=== PATIENT | female | born 1940 | race Hispanic/Latino ===

== ENCOUNTER → 2017-05-29 | Outpatient (CLI) | payer MEDICARE ==
[~2017-05-29] MED LIST: ASPI-1190 PO; CHOL200016 PO; CURCUMIN PO; HYDR5TAB2 PO; IOPAMIDOL-370 75 ML VIAL IV ONE; MAGN400C PO; METF500T6 PO; NAPR220C15 PO; OMEP20CA10 PO; PRAS50CA3 PO; PROG100C6 PO; THYR60TA2 PO; WHEA1POW2 PO; [UNRECOGNIZED DRUG - OTHER] PO
== END | disposition home or self-care (01) ==
LOC: RAH 08:06
PROVIDERS: ATTEND Family Medicine
DX: K57.92 Diverticulitis of intestine, part unspecified, without perforation or abscess without bleeding (principal)
CPT/HCPCS: 74176; Q9967

== ENCOUNTER 2018-06-29 07:08 | Inpatient (IN) | payer MEDICARE | END 2018-07-04 11:25 | disposition home or self-care (01) | LOC: DAHIP 07:08 → 3BH 15:44 | PROC: 0DTN4ZZ Resection of Sigmoid Colon, Percutaneous Endoscopic Approach (ICD-10-PCS; principal; 2018-06-29 09:42) | PROC: 0DJD8ZZ Inspection of Lower Intestinal Tract, Via Natural or Artificial Opening Endoscopic (ICD-10-PCS; 2018-06-29 09:42) | DX: K57.32 Diverticulitis of large intestine without perforation or abscess without bleeding (principal); K56.7 Ileus, unspecified ==

== ENCOUNTER → 2018-08-11 | Outpatient (CLI) | payer MEDICARE ==
[~2018-08-11] MED LIST changes: -ASPI-1190 PO; -CHOL200016 PO; +CHOL200059 PO; -CURCUMIN PO; +DIATR MEGLU/DIATRIZOATE SODIUM 30 ML BOTTLE ONE; -HYDR5TAB2 PO; -IOPAMIDOL-370 75 ML VIAL IV ONE; -MAGN400C PO; +MAGN400T6 PO; +METF-444 PO; -METF500T6 PO; -NAPR220C15 PO; -OMEP20CA10 PO; +PRAS25CA9 PO; -PRAS50CA3 PO; -PROG100C6 PO; -THYR60TA2 PO; +THYR90TA PO; +TYL3 PO; -WHEA1POW2 PO; -[UNRECOGNIZED DRUG - OTHER] PO
== END | disposition home or self-care (01) ==
LOC: RAH 08:01
PROVIDERS: ATTEND Student in an Organized Health Care Education/Training Program
DX: R10.2 Pelvic and perineal pain (principal); K57.30 Diverticulosis of large intestine without perforation or abscess without bleeding; Z90.49 Acquired absence of other specified parts of digestive tract
CPT/HCPCS: 72192; Q9963

== ENCOUNTER 2018-10-24 23:58 | Emergency (ER) | payer MEDICARE ==
[~2018-10-24 23:58] MED LIST changes: -DIATR MEGLU/DIATRIZOATE SODIUM 30 ML BOTTLE ONE
[2018-10-25 00:38] LABS: APPEARANCE,URINE Clear (CLEAR); BASOPHILS % (AUTO) 0.7 % (0.0-5.0); BILIRUBIN,URINE Negative (NEGATIVE); COLOR,URINE Yellow (YELLOW); EOSINOPHILS % (AUTO) 1.5 % (0.0-8.0); GLUCOSE, URINE (UA) Negative (NEGATIVE); HEMATOCRIT 37.4 % (36-48); KETONES,URINE Negative (NEGATIVE); LEUKOCYTE ESTERASE ,URINE Large (NEGATIVE); LYMPHOCYTES % (AUTO) 32.4 % (21.0-51.0); MEAN CORPUSCULAR HEMOGLOBIN 29.7 pg (27.0-33.0); MEAN CORPUSCULAR HGB CONC 33.9 g/dL (32.0-36.0); MEAN CORPUSCULAR VOLUME 87.7 fL (79-99); MONOCYTES % (AUTO) 9.4 % (3.0-13.0); NITRATE,URINE Negative (NEGATIVE); OCCULT BLOOD,URINE Negative (NEGATIVE); PLATELET COUNT (AUTO) 218 K/uL (130-400); PROTEIN,URINE Negative (NEGATIVE); RED BLOOD CELL COUNT(AUTO) 4.26 MIL/uL (4.00-5.50); RED CELL DISTRIBUTION WIDTH 13.7 % (11.0-15.5); UROBILINOGEN,URINE 0.2 mg/dL (0.2-1.0); WHITE BLOOD COUNT (AUTO) 6.3 K/uL (4.8-10.8)
[2018-10-25 00:46] LABS: CREATININE 1.3 mg/dL (0.5-1.5); POTASSIUM 3.9 mmol/L (3.5-5.1)
[2018-10-25 00:50] LABS: ALBUMIN 3.9 g/dL (3.5-5.0); BILIRUBIN,TOTAL 0.2 mg/dL (0.2-1.0); TOTAL PROTEIN, SERUM 7.2 g/dL (6.0-8.3)
[2018-10-25 01:10] LABS: BACTERIA,URINE Few /HPF (None Seen); MUCUS,URINE Moderate LPF (None Seen); RBC,URINE None Seen /HPF (0-1); SQUAMOUS EPITHELIAL CELL,UR Moderate /HPF (0-2)
[2018-10-25] MEDS ORDERED: MORPHINE SULFATE 4 MG/1ML SYG ONE (01:24)
[2018-10-25] MEDS ORDERED: SODIUM CHLORIDE 0.9% 1000ML 1,000 ML IV ONE (01:24)
[2018-10-25] MEDS ORDERED: ONDANSETRON HCL 4 MG/2 ML VIAL ONE (01:24)
[2018-10-25] MEDS ORDERED: CEFTRIAXONE SODIUM 1 GM ONE (01:58)
[2018-10-25] MEDS ORDERED: KETOROLAC TROMETHAMINE 30MG/ML ONE (02:02)
== END 2018-10-25 02:04 | disposition home or self-care (01) ==
LOC: EDH 23:58
DX: K43.9 Ventral hernia without obstruction or gangrene (principal); N39.0 Urinary tract infection, site not specified; Z88.2 Allergy status to sulfonamides
CPT/HCPCS: 36415; 74176; 80053; 81001; 83690; 85025; 96374; 96375; 99285; J0696; J1885; J2270; J2405; J7030

== ENCOUNTER 2019-04-06 10:25 | Day surgery (SDC) | payer MEDICARE ==
[2019-04-01 12:06] VITALS: BP 147/81
[2019-04-01 12:11] LABS: BASOPHILS % (AUTO) 0.9 % (0.0-5.0); EOSINOPHILS % (AUTO) 2.5 % (0.0-8.0); HEMATOCRIT 40.3 % (36-48); LYMPHOCYTES % (AUTO) 28.8 % (21.0-51.0); MEAN CORPUSCULAR HEMOGLOBIN 31.7 pg (27.0-33.0); MEAN CORPUSCULAR VOLUME 93.4 fL (79-99); MONOCYTES % (AUTO) 8.6 % (3.0-13.0); NEUTROPHILS % (AUTO) 59.2 % (40.0-77.0); PLATELET COUNT (AUTO) 225 K/uL (130-400); RED BLOOD CELL COUNT(AUTO) 4.32 MIL/uL (4.00-5.50); RED CELL DISTRIBUTION WIDTH 12.8 % (11.0-15.5); WHITE BLOOD COUNT (AUTO) 4.2 K/uL (4.8-10.8)
[2019-04-01 12:18] LABS: CREATININE 1.1 mg/dL (0.5-1.5); POTASSIUM 4.3 mmol/L (3.5-5.1)
[~2019-04-06] VITALS: Ht 167.6 cm; Wt 78.3 kg
[2019-04-06] VITALS (14 sets, daily range): BP systolic 117–168; BP diastolic 72–96
[~2019-04-06 10:25] MED LIST changes: +BUPIVACAINE/PF 0.25% 30ML VIAL IJ ONE; +CEFAZOLIN SODIUM 1 GM VIAL IVP SCH; +DEXAMETHASONE SOD PHOSPHATE 10MG/ML 1ML VIAL ONE; +EPHEDRINE SULFATE 50 MG/ML AMPULE ONE; +FENTANYL CITRATE PF 50 MCG/1 ML 2ML VIAL ONE; +GLYCOPYRROLATE 1 MG/5 ML SYRINGE ONE; +KETOROLAC TROMETHAMINE 30MG/ML ONE; +LACTATED RINGERS 1000ML 1,000 ML IV ONE; +LIDOCAINE PF 2% 5ML ABBOJECT ONE; -MAGN400T6 PO; +MAGN400T8 PO; +MEPERIDINE-PF 25 MG/ML SYG ONE; -METF-444 PO; +MIDAZOLAM HCL 1 MG/ML 2ML VIAL ONE; +MORPHINE SULFATE 2 MG/ML 1ML SYG ONE; +NEOSTIGMINE 5MG/5ML SYR IV ONE; +PHARMACY COMMUNICATION MISC SCH; +PROPOFOL 10 MG/ML 20ML VIAL IV ONE; +ROCURONIUM 10MG/1ML SYR 10 MG/ML ML ONE; +SUCCINYLCHOLINE 200MG/10ML SYR ONE; -TYL3 PO
[2019-04-06] MEDS ORDERED: ACETAMINOPHEN-CODEINE 300/30MG TAB ONE (11:03)
== END 2019-04-06 11:21 | disposition home or self-care (01) ==
LOC: DAH 10:25 → EDSTATUS 11:00 → DAH 11:21
PROVIDERS: ATTEND Surgery
DX: K43.2 Incisional hernia without obstruction or gangrene (principal); J45.909 Unspecified asthma, uncomplicated; K21.9 Gastro-esophageal reflux disease without esophagitis; G43.909 Migraine, unspecified, not intractable, without status migrainosus; Z88.2 Allergy status to sulfonamides; Z88.1 Allergy status to other antibiotic agents; Z90.710 Acquired absence of both cervix and uterus; Z98.890 Other specified postprocedural states; Z90.49 Acquired absence of other specified parts of digestive tract; Z79.899 Other long term (current) drug therapy; Z83.3 Family history of diabetes mellitus
CPT/HCPCS: 36415; 49560; 49568; 80048; 85025; 93005; A4215; A4221; A4222; A4223; A4450; A4452; A4600; A4606; A4663; J0330; J0690; J1100; J1885; J2001; J2175 ×2; J2250; J2704; J2710; J3010; J3490 ×3; J7120 ×2

== ENCOUNTER → 2020-06-23 | Outpatient (CLI) | payer MEDICARE ==
[~2020-06-23] MED LIST changes: -BUPIVACAINE/PF 0.25% 30ML VIAL IJ ONE; -CEFAZOLIN SODIUM 1 GM VIAL IVP SCH; -DEXAMETHASONE SOD PHOSPHATE 10MG/ML 1ML VIAL ONE; -EPHEDRINE SULFATE 50 MG/ML AMPULE ONE; -FENTANYL CITRATE PF 50 MCG/1 ML 2ML VIAL ONE; -GLYCOPYRROLATE 1 MG/5 ML SYRINGE ONE; -KETOROLAC TROMETHAMINE 30MG/ML ONE; -LACTATED RINGERS 1000ML 1,000 ML IV ONE; -LIDOCAINE PF 2% 5ML ABBOJECT ONE; -MEPERIDINE-PF 25 MG/ML SYG ONE; -MIDAZOLAM HCL 1 MG/ML 2ML VIAL ONE; -MORPHINE SULFATE 2 MG/ML 1ML SYG ONE; -NEOSTIGMINE 5MG/5ML SYR IV ONE; -PHARMACY COMMUNICATION MISC SCH; -PROPOFOL 10 MG/ML 20ML VIAL IV ONE; -ROCURONIUM 10MG/1ML SYR 10 MG/ML ML ONE; -SUCCINYLCHOLINE 200MG/10ML SYR ONE
== END | disposition home or self-care (01) ==
LOC: RAH 09:32
PROVIDERS: ATTEND Family Medicine
DX: M50.223 Other cervical disc displacement at C6-C7 level (principal); M50.222 Other cervical disc displacement at C5-C6 level; M50.221 Other cervical disc displacement at C4-C5 level
CPT/HCPCS: 72141

== ENCOUNTER → 2020-11-15 | Outpatient (CLI) | payer MEDICARE ==
[2020-11-15 10:03] LABS: BASOPHILS % (AUTO) 0.4 % (0.0-5.0); EOSINOPHILS % (AUTO) 0.7 % (0.0-8.0); HEMATOCRIT 37.1 % (36-48); LYMPHOCYTES % (AUTO) 29.2 % (21.0-51.0); MEAN CORPUSCULAR HGB CONC 32.1 g/dL (32.0-36.0); MEAN CORPUSCULAR VOLUME 96.6 fL (79-99); MONOCYTES % (AUTO) 9.1 % (3.0-13.0); NEUTROPHILS % (AUTO) 60.2 % (40.0-77.0); PLATELET COUNT (AUTO) 219 K/uL (130-400); RED BLOOD CELL COUNT(AUTO) 3.84 MIL/uL (4.00-5.50); RED CELL DISTRIBUTION WIDTH 13.7 % (11.0-15.5); WHITE BLOOD COUNT (AUTO) 4.5 K/uL (4.8-10.8)
[2020-11-15 10:25] LABS: ALBUMIN 3.7 g/dL (3.5-5.0); BILIRUBIN,TOTAL 0.4 mg/dL (0.2-1.0); CREATININE 1.1 mg/dL (0.5-1.5); POTASSIUM 4.4 mmol/L (3.5-5.1)
== END | disposition home or self-care (01) ==
LOC: RAH 08:52
PROVIDERS: ATTEND Internal Medicine Gastroenterology
DX: K43.9 Ventral hernia without obstruction or gangrene (principal); K57.90 Diverticulosis of intestine, part unspecified, without perforation or abscess without bleeding
CPT/HCPCS: 36415; 76700; 80053; 82150; 83690; 85025

== ENCOUNTER → 2021-01-05 | Outpatient (CLI) | payer MEDICARE | END | disposition home or self-care (01) | LOC: RAH 11:20 | PROVIDERS: ATTEND Family Medicine | DX: M41.84 Other forms of scoliosis, thoracic region (principal) | CPT/HCPCS: 72070 ==

== ENCOUNTER → 2021-08-07 | Outpatient (CLI) | payer MEDICARE ==
[~2021-08-07] MED LIST changes: +IOHEXOL-350 75 ML VIAL IV ONE; +MAGN400T56 PO; -MAGN400T8 PO
== END | disposition home or self-care (01) ==
LOC: RAH 08:00
PROVIDERS: ATTEND Family Medicine
DX: K57.30 Diverticulosis of large intestine without perforation or abscess without bleeding (principal)
CPT/HCPCS: 74178; Q9967

== ENCOUNTER → 2021-08-28 | Outpatient (CLI) | payer MEDICARE ==
[~2021-08-28] MED LIST changes: -IOHEXOL-350 75 ML VIAL IV ONE
== END | disposition home or self-care (01) ==
LOC: SHCH 15:06
PROVIDERS: ATTEND Internal Medicine Cardiovascular Disease
DX: I51.89 Other ill-defined heart diseases (principal); R06.00 Dyspnea, unspecified
CPT/HCPCS: 93306

== ENCOUNTER → 2021-08-30 | Outpatient (CLI) | payer OTHER | END | disposition home or self-care (01) | LOC: OIH 08:20 | PROVIDERS: ATTEND Internal Medicine Cardiovascular Disease | DX: Z13.6 Encounter for screening for cardiovascular disorders (principal); R93.1 Abnormal findings on diagnostic imaging of heart and coronary circulation | CPT/HCPCS: 75571 ==

== ENCOUNTER → 2022-08-07 | Outpatient (CLI) | payer MEDICARE, BC | END | disposition home or self-care (01) | LOC: RAH 12:31 | PROVIDERS: ATTEND Family Medicine | DX: I34.0 Nonrheumatic mitral (valve) insufficiency (principal); I34.1 Nonrheumatic mitral (valve) prolapse; I34.81 Nonrheumatic mitral (valve) annulus calcification | CPT/HCPCS: 93306 ==

== ENCOUNTER → 2022-11-06 | Outpatient (CLI) | payer MEDICARE, BC | END | disposition home or self-care (01) | LOC: RAH 12:42 | PROVIDERS: ATTEND Family Medicine | DX: R05.1 Acute cough (principal); M47.814 Spondylosis without myelopathy or radiculopathy, thoracic region | CPT/HCPCS: 71046 ==

== ENCOUNTER → 2023-06-30 | Outpatient (CLI) | payer MEDICARE ==
[~2023-06-30] MED LIST changes: +ALBU1.252 IH; +AMIT50TA3 PO; +DOCU100C33 PO; +GABA100C PO; +LIDO700A30 TP; +LORA10TA7 PO; +METO25 PO; -PRAS25CA9 PO; +SUMA50TA17 PO; +THYR60TA2 PO; -THYR90TA PO
[2023-06-30 16:57] LABS: ALBUMIN 3.6 g/dL (3.5-5.0); BILIRUBIN,TOTAL 0.3 mg/dL (0.2-1.0); CREATININE 1.4 mg/dL (0.5-1.5); POTASSIUM 4.3 mmol/L (3.5-5.1); TOTAL PROTEIN, SERUM 6.7 g/dL (6.0-8.3)
== END | disposition home or self-care (01) ==
LOC: LAB 16:03
PROVIDERS: ATTEND Internal Medicine Cardiovascular Disease
DX: I34.0 Nonrheumatic mitral (valve) insufficiency (principal); R06.00 Dyspnea, unspecified
CPT/HCPCS: 36415; 80053; 83735; 83880

== ENCOUNTER → 2023-08-25 | Outpatient (CLI) | payer MEDICARE | END | disposition home or self-care (01) | LOC: RAH 16:40 | PROVIDERS: ATTEND Family Medicine | DX: M19.031 Primary osteoarthritis, right wrist (principal); M25.531 Pain in right wrist | CPT/HCPCS: 73100 ==

== ENCOUNTER → 2023-09-04 | Outpatient (CLI) | payer MEDICARE | END | disposition home or self-care (01) | LOC: RAH 12:22 | PROVIDERS: ATTEND Family Medicine | DX: G31.9 Degenerative disease of nervous system, unspecified (principal); R51.9 Headache, unspecified; Z91.81 History of falling | CPT/HCPCS: 70450 ==

== ENCOUNTER → 2023-12-01 | Outpatient (CLI) | payer MEDICARE | END | disposition home or self-care (01) | LOC: RAH 07:26 | PROVIDERS: ATTEND Internal Medicine | DX: K43.9 Ventral hernia without obstruction or gangrene (principal); R10.13 Epigastric pain | CPT/HCPCS: 76700 ==

== ENCOUNTER 2024-02-13 15:53 | Emergency (ER) | payer MEDICARE ==
[~2024-02-13] VITALS: Ht 167.6 cm; Wt 73.9 kg
[2024-02-13 15:57] VITALS: BP 196/78; PULSE 64; RESP 16; TEMP 98.4
[2024-02-13] MEDS: acetaMINOPHEN WITH coDEINE 1 TAB TAB PO ONE (17:10)
[2024-02-13 17:22] LABS: BASOPHILS # (AUTO) 0.02 K/uL (0.00-0.20); BASOPHILS % (AUTO) 0.4 % (0.0-5.0); EOSINOPHILS # (AUTO) 0.16 K/uL (0.00-0.70); EOSINOPHILS % (AUTO) 3.2 % (0.0-8.0); HEMATOCRIT 39.9 % (36-48); IMMATURE GRANULOCYTE ABSOLUTE 0.01 K/uL (0-1); LYMPHOCYTES # (AUTO) 1.2 K/uL (1.0-4.8); LYMPHOCYTES % (AUTO) 23.7 % (21.0-51.0); MEAN CORPUSCULAR HEMOGLOBIN 30.1 pg (27.0-33.0); MEAN CORPUSCULAR HGB CONC 32.3 g/dL (32.0-36.0); MONOCYTES # (AUTO) 0.4 K/uL (0.1-1.0); MONOCYTES % (AUTO) 7.8 % (3.0-13.0); NEUTROPHILS # (AUTO) 3.2 K/uL (1.8-7.7); NEUTROPHILS % (AUTO) 64.7 % (40.0-77.0); PLATELET COUNT (AUTO) 205 K/uL (130-400); RED BLOOD CELL COUNT(AUTO) 4.29 MIL/uL (4.00-5.50); RED CELL DISTRIBUTION WIDTH 13.6 % (11.0-15.5)
[2024-02-13 17:38] LABS: CREATININE 1.1 mg/dL (0.5-1.0); POTASSIUM 4.7 mmol/L (3.5-5.1)
[2024-02-13 17:40] LABS: APPEARANCE,URINE CLEAR (CLEAR); BILIRUBIN,URINE NEGATIVE (NEGATIVE); COLOR,URINE LIGHT-YELLOW (YELLOW); GLUCOSE, URINE (UA) NEGATIVE (NEGATIVE); KETONES,URINE NEGATIVE (NEGATIVE); LEUKOCYTE ESTERASE ,URINE 25 Leu/uL (NEGATIVE); NITRATE,URINE NEGATIVE (NEGATIVE); OCCULT BLOOD,URINE NEGATIVE (NEGATIVE); PH,URINE 5.5 (5.0-8.0); PROTEIN,URINE NEGATIVE (NEGATIVE); UROBILINOGEN,URINE 0.2 mg/dL (0.2-1.0)
[2024-02-13 17:45] LABS: ADD UA MICROSCOPIC YES
[2024-02-13 17:47] LABS: MUCUS,URINE RARE LPF (None Seen); RBC,URINE 0-1 /HPF (0-1); SQUAMOUS EPITHELIAL CELL,UR RARE /HPF (0-2)
[2024-02-13] MEDS ORDERED: IOHEXOL-350 75 ML VIAL IV ONE (17:58)
[2024-02-13] MEDS ORDERED: ACET-2079 PO (19:54)
== END 2024-02-13 20:17 | disposition home or self-care (01) ==
LOC: EDH 15:53
DX: G43.909 Migraine, unspecified, not intractable, without status migrainosus (principal); R10.32 Left lower quadrant pain; G57.92 Unspecified mononeuropathy of left lower limb; R10.2 Pelvic and perineal pain; M25.552 Pain in left hip; Z88.2 Allergy status to sulfonamides; Z88.1 Allergy status to other antibiotic agents; Z79.899 Other long term (current) drug therapy; Z98.890 Other specified postprocedural states
CPT/HCPCS: 99285; 74177; 80048; 85025; 81001; 36415; Q9967

== ENCOUNTER → 2024-09-15 | Outpatient (CLI) | payer MEDICARE ==
[~2024-09-15] MED LIST changes: +ACET-2079 PO
--- NOTE | 2024-09-15 12:41 | HMCIMG ---
THORACIC SPINE RADIOGRAPHS - 3 VIEWS INDICATION: Back pain COMPARISON: None FINDINGS: AP lateral and swimmer's views No acute fracture or subluxation identified. Vertebral body heights and disc spaces are well-maintained. Multilevel nominal anterior endplate osteophytic spurring. Mild upper thoracic levoscoliosis. Mild thoracic kyphosis. IMPRESSION: Degenerative changes as described, without superimposed acute component.
== END | disposition home or self-care (01) ==
LOC: RAH 11:49
PROVIDERS: ATTEND Physical Medicine & Rehabilitation
DX: M47.814 Spondylosis without myelopathy or radiculopathy, thoracic region (principal); M41.84 Other forms of scoliosis, thoracic region; M46.04 Spinal enthesopathy, thoracic region; M25.78 Osteophyte, vertebrae; M54.9 Dorsalgia, unspecified
CPT/HCPCS: 72072